=== PATIENT | male | born 1970 | race Caucasian/White ===

== ENCOUNTER 2024-07-24 10:53 | Emergency (ER) | payer OTHER, SELFPAY ==
--- OUTSIDE RECORDS SUMMARY | 2024-07-24 10:56 | XMS_ITS | Clinical Summary ---
Author Organization [facility] Address [address] [place] [address] Care Team Providers Care Workforce Advisor Name Role Phone Alan Abbasi MD Primary Care Provider Allergies No known active allergies Medications MULTIVITAMIN ORAL Take 2 Tablets by mouth once daily. Active docosahexaenoic acid/epa (FISH OIL ORAL) Take 2 Capsules by mouth once daily. Active methylphenidate HCl (Ritalin) 20 mg tabletIndications: Attention deficit hyperactivity disorder (ADHD), combined type Take 1 Tablet (20 mg) by mouth two times daily. 60 Tablet 4 Active CPAPIndications:OS A (obstructive sleep apnea) CPAP (E0601) machine for home use at pressure: 10 , Choice of mask (A7030 or A7034) w/full face cushion (A7031) x1/mo, nasal cushion (A7032) x2/mo, or nasal pillows (A7033) x 2/mo; Length of Need: 99 months; Frequency of use: Daily 1 Each 4 Active methylphenidate HCl (Ritalin) 20 mg tabletIndications: Attention deficit hyperactivity disorder (ADHD), combined type Take 1 Tablet (20 mg) by mouth two times daily. 60 Tablet 4 Active mirtazapine (REMERON) 7.5 mg tabletIndications: Chronic insomnia Take 1 Tablet (7.5 mg) by mouth at bedtime. Take 10 hours before planning on waking up 90 Tablet 1 4 Active metoprolol succinate (TOPROL XL) 50 mg sustained-release tabletIndications: Persistent atrial fibrillation (HC) Take 1 Tablet (50 mg) by mouth two times daily. 180 Tablet 3 Active baclofen 10 mg tabletIndications: Chronic bilateral low back pain without sciatica Take 1 Tablet (10 mg) by mouth 3 times daily if needed (back pain). 15 Tablet 5 Active Active Problems Problem Noted Date Diagnosed Date Carpal tunnel syndrome on right 07/02/2023 Bilateral carpal tunnel syndrome 06/25/2023 Elevated liver enzymes 03/25/2023 Non-traumatic rhabdomyolysis 03/22/2023 Atrial fibrillation 03/22/2023 RAMANDEEP (obstructive sleep apnea) 03/19/2023 Insomnia 07/09/2016 L4-5 neuroforaminal stenosis 02/18/2012 History of spinal fusion, L5-S1, 2002 12/30/2011 Lumbar facet arthropathy 12/30/2011 ADD (attention deficit disorder) Overview (12/20/2013): Neuropsych evaluation Encounters Date Type Department Care Team Description 06/12/2024 7:30 PM CDT Office Visit [facility] [address] [place] [address] Nicole Soto PA Throat Problem (x 4 days) 06/12/2024 Travel 06/01/2024 4:49 PM CDT - 06/01/2024 7:23 PM CDT Emergency [facility] [address] [place] [address] Yamile Dugan PA Chronic bilateral low back pain without sciatica (Primary Dx) Discharge Disposition: Home Self Care 06/01/2024 Travel 05/08/2024 4:30 PM HOSTESS HOST Office Visit [facility] - [address] [place] [phone] Rai Richards MD Follow Up (post hosp F/U. 12/20 echo, 01/17 CT, 01/18 ablation. Pt states feeling fine, no recent or current cardiac symptoms.) 05/08/2024 Travel from Last 3 Months Immunizations Immunization Administration Dates Next Due Influenza, IIV4 11/30/2022,12/07/2016 Influenza, Injectable, Mdck, Quadrivalent, W/preservative 12/16/2020 Influenza,LAIV4 Live Intranasal (Flumist) 2009 Td (Age >=7 Years) 06/21/2003 Tdap 11/30/2022,08/28/2013 Tuberculin (PPD) 11/26/2014,10/31/2014, 5 Zoster (Shingrix-RZV, recombinant) 12/16/2020, Family History Medical History Relation Name Comments No Known Problems Brother Arrhythmia Father pacemaker Cancer Mother Inflammatory bowel disease Mother Heart attack Paternal Grandfather Hypertension Paternal Grandfather Anesthesia Problem No Family History Clotting disorder No Family History Relation Name Status Comments Brother Alive Father Alive Maternal Grandfather Maternal Grandmother Mother Paternal Grandfather Paternal Grandmother Social History Tobacco Use Types Packs/Day Years Used Date Smoking Tobacco: Former Cigarettes Q uit: 03/08/1989 Passive Smoke Exposure: Never Smokeless Tobacco: Former Quit: 07/07/2011 Tobacco Cessation:Counseling Given: Not Answered Alcohol Use Standard Drinks/Week Comments No 0 (1 standard drink = 0.6 oz pur e alcohol) PHQ-2 Answer Date Recorded PHQ-2 TOTAL SCORE 0 03/18/2023 Social Connections Answer Date Recorded Do you often feel lonely or isolated from those around you? 0 03/22/2023 Financial Resource Strain Answer Date R ecorded Difficulty of Paying Living Expenses 3 03/22/2023 Difficulty of Paying Living Expenses Not on file 03/22/2023 Food Insecurity Answer Date Recorded Do you worry your food will run out before you are able to buy more? 1 03/22/2023 Transportation Needs Answer Date Record ed Does lack of transportation keep you from medica l appointments? 1 03/22/2023 Does lack of transportation keep you from work, meetings or getting things that you need? 1 03/22/2023 Housing Stability Answer Date Recorded What is your housing situation today? 1 03/22/2023 Interpersonal Safety Answer Date Record ed Are you being hit, kicked, p ushed or yelled at (see row info)? No 06/01/2024 Interpersonal Safety Abuse 12 - 18 Not on file 06/01/2024 Interpersonal Safety Ambulatory Vulnerability No t on file 06/01/2024 Utilities Answer Date Recorded Do you have trouble paying f or utilities (for example, heat, electricity, water, phone)? 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 Not on file Not on file Not on file Obstetrics History Last Filed Vital Signs Vital Sign Reading Time Taken Comments Blood Pressure 131/81 06/12/2024 7:59 PM CDT Pulse 104 06/12/2024 7:59 PM CDT Temperature 37.4 C (99.4 F) 06/12/2024 7:59 PM CDT Respiratory Rate 18 06/12/2024 7:59 PM CDT Oxygen Saturation 96% 06/12/2024 7:59 PM CDT Inhaled Oxygen Concentration - - Weight 136.5 kg (301 lb) 06/12/2024 7:59 PM CDT Height 185.4 cm (6' 1) 06/01/2024 4:51 PM CDT Body Mass Index 39.71 06/01/2024 4:51 PM CDT Plan of Treatment Health Maintenance Due Date Last Done Comments Depression screening for age 12+ 1981 Pneumococcal series for age 50+ (1 of 2 - PCV) 02/15/1988 COVID-19 vaccine series ( season) 2023 12/05/2022, 09/28/2020, 07/31/2020 Influenza Vaccine (Season Ended) 2024 11/30/2022, 12/16/2020, 12/07/2016, Additional history exists BMI (ht and wt on same day) for age 18+ 05/08/2025 05/08/2024, 11/30/2023, 09/08/2023, Additional history exists Fecal testing sDNA-FIT ([place] guard) for age 45-75 03/30/2026 03/30/2023 Lipids for age 45-75 03/18/2028 03/18/2023, 06/09/2022, 07/21/2021 Tetanus booster 11/30/2032 11/30/2022, 08/07, 06/21/2003 Zoster (shingles) series for age 50+ Completed 12/16/2020, 09/18/2020 HIV for age 15-65 Completed 06/09/2022 Hepatitis C screening for ag e 18-79 Completed 06/09/2022 Tdap Completed 11/30/2022, 08/28/2013 Procedures Procedure Name Priority Date/Time Associated Diagnosis Comments STREP A PCR STAT 06/12/2024 7:55 PM CDT Sore throat THROAT RAPID STREP A WITH REFLEX STAT 06/12/2024 7:55 PM CDT Sore throat EKG 12 LEAD STAT 06/01/2024 5:56 PM CDT URINALYSIS MICROSCOPIC STAT 06/01/2024 5:52 PM CDT UA W/ SEDIMENT EXAM REFLEXED PER CRITERIA STAT 06/01/2024 5:52 PM CDT CBC WITH AUTO DIFFERENTIAL STAT 06/01/2024 5:35 PM CDT FOLIC ACID STAT 06/01/2024 5:35 PM CDT VITAMIN B12 STAT 06/01/2024 5:35 PM CDT T4,FREE STAT 06/01/2024 5:35 PM CDT TSH STAT 06/01/2024 5:35 PM CDT CK TOTAL STAT 06/01/2024 5:35 PM CDT BASIC METABOLIC PANEL STAT 06/01/2024 5:35 PM CDT CBC WITH AUTO DIFFERENTIAL STAT 06/01/2024 5:35 PM CDT EKG 12 LEAD Routine 05/08/2024 4:03 PM HOSTESS HOST Persistent atrial fibrillation (HC) SDNA-FIT EXTERNAL (COLOGUARD) Routine 03/30/2023 11:15 AM HOSTESS HOST Colon cancer screening LIPID PANEL W REFLEX MEASURED LDL Routine 03/18/2023 5:12 PM HOSTESS HOST Routine general medical examination at a health care facility LC HIV-1/O/2, 4TH GENERATION Routine 06/09/2022 8:44 AM CDT Screening for HIV (human immunodeficiency virus) LC HCV ANTIBODY RFX TO QUANT PCR Routine 06/09/2022 8:44 AM CDT Need for hepatitis C screening test from Last 3 Months or Most Recently Relevant to Health Maintenance Results * STREP A PCR (06/12/2024 7:55 PM CDT) GROUP A STREP Negative 06/13/2024 2:39 PM CDT [facility] Throat SPECIMEN FROM THROAT / Unknown Non-Blood / Unknown 06/12/2024 7:55 PM CDT 06/12/2024 8:14 PM CDT us Aden Romanagusto Josue MICROBIOLOGY Final Result Performing Organization Address [facility]/ZIP Co de Phone Number [facility] [address] [place] [address], * THROAT RAPID STREP A WITH REFLEX (06/12/2024 7:55 PM CDT) STREP A ANTIGEN Negative 06/12/2024 8:14 PM CDT [facility] Comment:PCR to follow. Throat SPECIMEN FROM THROAT / Unknown Non-Blood / Unknown 06/12/2024 7:55 PM CDT 06/12/2024 7:59 PM CDT us Aden Roman Maribel ISRAEL MICROBIOLOGY Final Result Performing Organization Address City/[facility]/ZIP Co de Phone Number [facility] [address] [place] [address] * EKG 12 LEAD (06/01/2024 5:56 PM CDT) Only the most recent of2 resultswithin the time period is included. Interpretation Normal sinus rhythm Normal ECG When compared with ECG of 08-May-2024 16:03, No significant change was found BEYOND NOW Ventricular Rate 62 BPM BEYOND NOW Atrial Rate 62 BPM BEYOND NOW P-R Interval 168 ms BEYOND NOW QRS Duration 106 ms BEYOND NOW QT 404 ms BEYOND NOW QTc 410 ms BEYOND NOW P Bovey 34 degrees BEYOND NOW R Bovey 25 degrees BEYOND NOW T Bovey 52 degrees BEYOND NOW 06/01/2024 5:56 PM CDT 06/02/2024 3:32 AM CDT Yamile ISRAEL EKG ORD Final Result Performing Organization Address City/[facility]/ZIP Co de Phone Number BEYOND NOW [place], [place] * URINALYSIS MICROSCOPIC (06/01/2024 5:52 PM CDT) RBC 0-2 0-2, None Seen /HPF 06/01/2024 6:19 PM CDT [facility] WBC 0-2 0-2, 3-5, None Seen /HPF 06/01/2024 6:19 PM CDT [facility] BACTERIA Rare None Seen, Rare, Few Bacteria/H PF 06/01/2024 6:19 PM CDT [facility] EPITHELIAL CELLS Few None Seen, Few Epi/HPF 06/01/2024 6:19 PM CDT [facility] Mucus Present 06/01/2024 6:19 PM CDT [facility] Urine URINE SPECIMEN / Unknown Non-Blood / Unknown 06/01/2024 5:52 PM CDT 06/01/2024 5:55 PM CDT Yamile ISRAEL URINE Final Result [facility] [address] [place] [address] * (ABNORMAL) UA W/ SEDIMENT EXAM REFLEXED PER CRITERIA (06/01/2024 5:52 PM CDT) COLOR Yellow Yellow Color 06/01/2024 5:58 PM CDT [facility] CLARITY Clear Clear Clarity 06/01/2024 5:58 PM CDT [facility] SPECIFIC GRAVITY,URINE 1.025 1.010, 1.015, 1.020, 1.025 06/01/2024 5:58 PM CDT [facility] PH,URINE 6.0 6.0, 7.0, 8.0, 5.5, 6.5, 7.5, 8.5 06/01/2024 5:58 PM CDT [facility] UROBILINOGEN, QUALITATIVE Normal Normal EU/dl 06/01/2024 5:58 PM T [facility] PROTEIN, URINE Trace(A) Negative mg/dL 06/01/2024 5:58 PM CDT [facility] GLUCOSE, URINE Negative Negative mg/dL 06/01/2024 5:58 PM CDT [facility] KETONES,URINE Negative Negative mg/dL 06/01/2024 5:58 PM CDT [facility] BILIRUBIN,URI NE Negative Negative 06/01/2024 5:58 PM T [facility] OCCULT BLOOD,URINE Trace(A) Negative 06/01/2024 5:58 PM T [facility] NITRITE Negative Negative 06/01/2024 5:58 PM CDT [facility] LEUKOCYTE ESTERASE Negative Negative 06/01/2024 5:58 PM T [facility] Urine URINE SPECIMEN / Unknown Non-Blood / Unknown 06/01/2024 5:52 PM CDT 06/01/2024 5:55 PM CDT us Yamile ISRAEL URINE Final Result [facility] [address] [place] [address] * CBC WITH AUTO DIFFERENTIAL (06/01/2024 5:35 PM CDT) WHITE BLOOD COUNT 7.1 4.5 - 11.0 thou/cu mm 06/01/2024 5:44 PM [facility] RED BLOOD COUNT 4.90 4.30 - 5.90 mil/cu mm 06/01/2024 5:44 PM [facility] HEMOGLOBIN 14.4 13.5 - 17.5 g/dL 06/01/2024 5:44 PM [facility] HEMATOCRIT 44.4 37.0 - 53.0 % 06/01/2024 5:44 PM [facility] MCV 91 80 - 100 fL 06/01/2024 5:44 PM [facility] MCH 29.4 26.0 - 34.0 pg 06/01/2024 5:44 PM [facility] MCHC 32.4 32.0 - 36.0 g/dL 06/01/2024 5:44 PM [facility] RDW 12.9 11.5 - 15.5 % 06/01/2024 5:44 PM [facility] PLATELET COUNT 230 140 - 440 thou/cu mm 06/01/2024 5:44 PM [facility] MPV 9.2 6.5 - 11.0 fL 06/01/2024 5:44 PM [facility] % NEUT 57.6 % 06/01/2024 5:44 PM [facility] % LYMPH 29.7 % 06/01/2024 5:44 PM [facility] % MONO 10.4 % 06/01/2024 5:44 PM [facility] % EOS 1.7 % 06/01/2024 5:44 PM [facility] % BASO 0.6 % 06/01/2024 5:44 PM [facility] ABSOLUTE NEUTROPHILS 4.1 1.7 - 7.0 thou/cu mm 06/01/2024 5:44 PM [facility] ABSOLUTE LYMPHOCYTES 2.1 0.9 - 2.9 thou/cu mm 06/01/2024 5:44 PM [facility] ABSOLUTE MONOCYTES 0.7 <0.9 thou/cu mm 06/01/2024 5:44 PM CDT [facility] ABSOLUTE EOSINOPHILS 0.1 <0.5 thou/cu mm 06/01/2024 5:44 PM CDT [facility] ABSOLUTE BASOPHILS 0.0 <0.3 thou/cu mm 06/01/2024 5:44 PM CDT [facility] Blood BLOOD SPECIMEN / Unknown Venipuncture / Unknown 06/01/2024 5:35 PM CDT 06/01/2024 5:38 PM CDT Yamile ISRAEL HEMATOLOGY Final Result Performing Organization Address [facility] Co de Phone Number [facility] [address] [place] [address] * TSH (06/01/2024 5:35 PM CDT) TSH 1.56 0.27 - 4.20 uIU/mL 06/01/2024 6:07 PM CDT [facility] Blood BLOOD SPECIMEN / Unknown Venipuncture / Unknown 06/01/2024 5:35 PM CDT 06/01/2024 5:38 PM CDT Narrative [facility] - 06/01/2024 6:07 PM CDT In Adults, TSH values between 5.00 and 10.00 uIU/ml do not necessarily indicate the presence of Hypothyroidism. Correlation with clinical findings such as presence of goiter and/or Thyroperoxidase (TPO) Antibody may be helpful. For more information please refer to NOEL 2004; 291: 228-238. Yamile ISRAEL CHEMISTRY Final Result Performing Organization Address [facility] Co de Phone Number [facility] [address] [place] [address] * T4,FREE (06/01/2024 5:35 PM CDT) T4,FREE 1.05 0.93 - 1.70 ng/dL 06/02/2024 1:02 PM CDT [facility] Blood BLOOD SPECIMEN / Unknown Venipuncture / Unknown 06/01/2024 5:35 PM CDT 06/01/2024 5:38 PM CDT [facility] Final Result Performing Organization Address City/[facility]/ZIP Co de Phone Number [facility] [address] [place] [address], [place] * FOLIC ACID (06/01/2024 5:35 PM CDT) FOLIC ACID 6.2 4.6 - 34.8 ng/mL 06/02/2024 1:02 PM CDT [facility] Blood BLOOD SPECIMEN / Unknown Venipuncture / Unknown 06/01/2024 5:35 PM CDT 06/01/2024 5:38 PM CDT Narrative [facility] - 06/02/2024 1:02 PM CDT Biotin supplements may cause clinically significant interference for this test assay. If interference is suspected, it is strongly recommended that biotin is discontinued for at least one week prior to retesting. Yamile Mehdi ISRAEL CHEMISTRY Final Result Performing Organization Address City/[facility] Co de Phone Number [facility] [address] [place] [address], [place] * VITAMIN B12 (06/01/2024 5:35 PM CDT) VITAMIN B12 549 232 - 1,245 pg/mL 06/02/2024 1:02 PM CDT [facility] Blood BLOOD SPECIMEN / Unknown Venipuncture / Unknown 06/01/2024 5:35 PM CDT 06/01/2024 5:38 PM CDT Narrative [facility] - 06/02/2024 1:02 PM CDT Biotin supplements may cause clinically significant interference for this test assay. If interference is suspected, it is strongly recommended that biotin is discontinued for at least one week prior to retesting. Yamile ISRAEL CHEMISTRY Final Result [facility] [address] [place] [address], * CK TOTAL (06/01/2024 5:35 PM CDT) CK,TOTAL 126 39 - 308 IU/L 06/01/2024 6:07 PM T [facility] Blood BLOOD SPECIMEN / Unknown Venipuncture / Unknown 06/01/2024 5:35 PM CDT 06/01/2024 5:38 PM CDT Yamile ISRAEL CHEMISTRY Final Result Performing Organization Address City/[facility]/ZIP Co de Phone Number [facility] [address] [place] [address] * (ABNORMAL) BASIC METABOLIC PANEL (06/01/2024 5:35 PM CDT) SODIUM 137 136 - 145 mmol/L 06/01/2024 6:07 PM [facility] POTASSIUM 4.1 3.5 - 5.1 mmol/L 06/01/2024 6:07 PM [facility] CHLORIDE 102 98 - 107 mmol/L 06/01/2024 6:07 PM [facility] CO2,TOTAL 25 22 - 29 mmol/L 06/01/2024 6:07 PM [facility] ANION GAP 10 5 - 18 06/01/2024 6:07 PM [facility] GLUCOSE 114(H) 70 - 99 mg/dL 06/01/2024 6:07 PM [facility] CALCIUM 9.5 8.8 - 10.4 mg/dL 06/01/2024 6:07 PM [facility] Comment: Reference ranges for this test were updated on 01/11/2024 to reflect our healthy population more accurately. Reference range changes are not retroactively applied to results, but previous results using the same methodology can be interpreted in the context of the new reference range. BUN 21(H) 6 - 20 mg/dL 06/01/2024 6:07 PM T [facility] CREATININE 0.69(L) 0.70 - 1.20 mg/dL 06/01/2024 6:07 PM T [facility] BUN/CREAT RATIO 30(H) 10 - 20 6:07 PM T [facility] eGFR >90 >90 mL/min/1. 73m2 06/01/2024 6:07 PM [facility] Comment:As of 2021, eG FR is calculated by the CKD-EPI creatinine equation without race adjustment. eGFR can be influenced by muscle mass, exercise, and diet. The reported eGFR is an estimation only and is only applicable if the renal function is stable. Blood BLOOD SPECIMEN / Unknown Venipuncture / Unknown 06/01/2024 5:35 PM CDT 06/01/2024 5:38 PM CDT Yamile ISRAEL CHEMISTRY Final Result [facility] [address] [place], [place] [id number] * SDNA-FIT EXTERNAL (COLOGUARD) (03/30/2023 11:15 AM HOSTESS HOST) NONINV COLON CA DNA+OCC BLD SCRN STL-IMP Negative Negative 04/11/2023 10:12 AM HOSTESS HOST [employer] [facility] [facility] (CLIA #:[id number]) Comment: NEGATIVE TEST RESULT. A negative Cologuard result indicates a low likelihood that a colorectal cancer (CRC) or advanced adenoma (adenomatous polyps with more advanced pre-malignant features) is present. The chance that a person with a negative Cologuard test has a colorectal cancer is less than 1 in 1500 (negative predictive value >99.9%) or has an advanced adenoma is less than 5.3% (negative predictive value 94.7%). These data are based on a prospective cross-sectional study of 10,000 individuals at average risk for colorectal cancer who were screened with both Cologuard and colonoscopy. (Jazmine Montelongo, N Engl J Med 2014;370(14):2733-4033) The normal value (reference range) for this assay is negative. COLOGUARD RE-SCREENING RECOMMENDATION: Periodic colorectal cancer screening is an important part of preventive healthcare for asymptomatic individuals at average risk for colorectal cancer. Following a negative Cologuard result, the [place] [employer] Society and U.S. Multi-Society Task Force screening guidelines recommend a Cologuard re-screening interval of 3 years. References: [place] [employer] Guideline for Colorectal Cancer Screening: https://www.cancer.org/cancer/lbwtj-eiopgx-exfosy/yqcxewjad-mkutbfnrs-kwcqsvc/ac s-rec ommendations.html.; Will DK, Sravani CLIFTON, Lupis NoK, Colorectal Cancer Screening: Recommendations for Physicians and Patients from the U.S. Multi-Society Task Force on Colorectal Cancer Screening , Am J Gastroenterology 2017; 112:9354-9133. TEST DESCRIPTION: Composite algorithmic analysis of stool DNA-biomarkers with hemoglobin immunoassay. Quantitative values of individual biomarkers are not reportable and are not associated with individual biomarker result reference ranges. Cologuard is intended for colorectal cancer screening of adults of either sex, 45 years or older, who are at average-risk for colorectal cancer (CRC). Cologuard has been approved for use by the U.S. FDA. The performance of Cologuard was established in a cross sectional study of average-risk adults aged 50-84. Cologuard performance in patients ages 45 to 49 years was estimated by sub-group analysis of near-age groups. Colonoscopies performed for a positive result may find as the most clinically significant lesion: colorectal cancer [4.0%], advanced adenoma (including sessile serrated polyps greater than or equal to 1cm diameter) [20%] or non- advanced adenoma [31%]; or no colorectal neoplasia [45%]. These estimates are derived from a prospective cross-sectional screening study of 10,000 individuals at average risk for colorectal cancer who were screened with both Cologuard and colonoscopy. (Jazmine Montelongo, N Engl J Med 2014;370(14):5592-0982.) Cologuard may produce a false negative or false positive result (no colorectal cancer or precancerous polyp present at colonoscopy follow up). A negative Cologuard test result does not guarantee the absence of CRC or advanced adenoma (pre-cancer). The current Cologuard screening interval is every 3 years. ([place] [employer] and U.S. Multi-Society Task Force). Cologuard performance data in a 10,000 patient pivotal study using colonoscopy as the reference method can be accessed at the following location: www.[employer].Clearbon/results. Additional description of the Cologuard test process, warnings and precautions can be found at www.[facility].com. Stool specimen (specimen) (Rectum) 03/30/2023 11:15 AM HOSTESS HOST 03/31/2023 1:26 PM HOSTESS HOST Danii Gomez DO URINE Final Result [employer] [facility] (CLIA #:[id number]) [place] [address], * (ABNORMAL) LIPID PANEL W REFLEX MEASURED LDL (03/18/2023 5:12 PM HOSTESS HOST) CHOLESTEROL,TOTAL 162 100 - 199 mg/dL 03/18/2023 5:[address] [facility] Comment: Cholesterol, Total Reference Ranges Desirable <200 mg/dL Borderline 200-239 mg/dL High >=240 mg/dL TRIGLYCERIDES 128 <150 mg/dL 03/18/2023 5:[address] [facility] HDL CHOLESTEROL 39(L) >40 mg/dL 5:[address] [facility] NON-HDL CHOLESTEROL 123 <145 mg/dl 03/18/2023 5:[address] [facility] CHOL/HDL RATIO 4.15 <4.50 03/18/2023 5:[address] [facility] LDL CHOLESTEROL 97 <=130 mg/dL 03/18/2023 5:[address] [facility] VLDL CHOLESTEROL 26 <=30 mg/dL 03/18/2023 5:[address] [facility] PROVIDER ORDERED STATUS RANDOM 03/18/2023 5:[address] [facility] Blood BLOOD SPECIMEN / Unknown Venipuncture / Unknown 03/18/2023 5:12 PM HOSTESS HOST 03/18/2023 5:13 PM HOSTESS HOST Danii Gomez DO CHEMISTRY Final Result [facility] [address] [place] [address] * LC HCV ANTIBODY RFX TO QUANT PCR (06/09/2022 8:44 AM CDT) Pathologist [facility] HCV Ab Non Reactive Non Reactive 06/11/2022 10:06 PM CDT [facility] [facility] Blood BLOOD SPECIMEN / Unknown Venipuncture / Unknown 06/09/2022 8:44 AM CDT 06/09/2022 8:48 AM CDT Narrative [facility]) - 06/11/2022 10:06 PM CDT Performed at: [address] [place] [id number] Manager Career: Jamey Hernandez MD, Phone: [phone] [facility] Fin al Result [facility]) [facility] [place] [address], * LC HIV-1/O/2, 4TH GENERATION (06/09/2022 8:44 AM CDT) Pathologist [facility] HIV Scr 4th Gen Non Reactive Non Reactive 06/12/2022 3:07 AM CDT [facility] Comment: HIV Negative HIV-1/HIV-2 antibodies and HIV-1 p24 antigen were NOT detected. There is no laboratory evidence of HIV infection. Blood BLOOD SPECIMEN / Unknown Venipuncture / Unknown 06/09/2022 8:44 AM CDT 06/09/2022 8:48 AM CDT [facility]ative [facility] - 06/12/2022 3:07 AM CDT Performed at: 01 - [facility] [address] [place], [place] [id number] Manager Career: Jamey Hernandez MD, Phone: [phone] us [facility] Fin al Result [facility]) [facility] [place] [address], from Last 3 Months or Most Recently Relevant to Health Maintenance Insurance [facility] [employer] Advance Directives * Full Code (Latest Code Status on File) Date Activated Date Inactivated Comments 01/19/2024 11:20 AM 01/19/2024 7:09 PM Question Answer Comments Code Status Discussion: Other * Full Code Date Activated Date Inactivated Comments 12/21/2023 11:45 AM 12/21/2023 2:50 PM Question Answer Comments Code Status Discussion: Other * Full Code Date Activated Date Inactivated Comments 09/16/2023 7:33 AM 09/16/2023 1:41 PM Question Answer Comments Code Status Discussion: Unable to Assess Preferences, Provider to review later * Full Code Date Activated Date Inactivated Comments 08/12/2023 6:30 AM 08/12/2023 11:45 AM Question Answer Comments Code Status Discussion: Unable to Assess Preferences, Provider to review later * Full Code Date Activated Date Inactivated Comments 04/16/2023 10:26 AM 04/16/2023 6:34 PM Question Answer Comments Code Status Discussion: Other Care Teams Workforce Advisor Relationship Specialty Start Date End Date Ayleen, Alan William, MD [address] [place] [address] PCP - General Family Practice 09/13/23
[2024-07-24 11:03] VITALS: BP 157/88; PULSE 83; RESP 16; TEMP 36.7; O2SAT 98; BMI 39.1
--- NOTE | 2024-07-24 11:22 | ED.GENADULT ---
HPI - General Adult General Time Seen by Provider: 11:23 Date Seen: 07/24/24 Chief complaint: Unspecified Complaint, Adult Stated complaint: whole body pain Time Seen by Provider: 07/24/24 11:05 Source: patient, RN notes reviewed and old records reviewed Mode of arrival: ambulatory Limitations: no limitations History of Present Illness HPI narrative: This 54-year-old male is accompanied by his with pain, concern of rhabdomyolysis. He has a history of nontraumatic rhabdomyolysis. About 2 years ago he was doing some wall pushups and the next day he had such severe pain in his arms he could not move. He denies any use of lipid agents/statins. He was hospitalized at [place] [address]. He notes he lifted some firewood into his truck over the weekend but was nothing exertional. He has long-term history of back issues with a spinal fusion L5-S1 in 2001. He notes his back was feeling a bit achy last night, took baclofen and then took mirtazapine to sleep. He was able to sleep but when he awoke at 7:00 a.m. this morning his back was in excruciating pain, could barely move. His notes it takes him about a 1/2 hour to get moving in the morning but this morning was out of the ordinary. She tried just massaging his back in he was screaming in pain. He denies any bowel or bladder dysfunction, pain is not going down into the legs at all. He did do a steam treatment to his back. He was having difficulty even just walking to the car due to pain in the back. Is on both sides in the low back. Again, pain is not going down the legs. He also notes that he is having generalized aches basically everywhere. He notes that his surgical scars from his prior carpal tunnel surgery on both hands are achy and sore. He denies any fevers or chills. His notes that baseline he is cold. Current medications from [facility] where he goes to his primary care are baclofen, Ritalin, Cozaar, betamethasone 0.05% for psoriasis, Wellbutrin. He takes Ritalin 20 mg b.i.d. as well as Concerta 54 mg daily for ADHD. He is on the Wellbutrin for anxiety and ADHD. The Cozaar as for hypertension. He had normal basic metabolic panel on March 27th, normal CBC, normal vitamin B12, normal CK at 126 and normal TSH at 1.56 with a normal free T4 at 1.05. He has no associated sore throat, nasal congestion, respiratory symptoms, cardiovascular symptoms. He had nausea with severe pain this morning but baseline no nausea vomiting diarrhea. No rash, no specific joint pain. His daughter was recently home and she was recovering from some cold symptoms. Related Data Home Medications ?Medication ?Instructions ?Recorded ?Confirmed methylphenidate HCl 20 mg tablet 20 mg PO BID 07/24/24 07/24/24 metoprolol succinate 50 mg 50 mg PO BID 07/24/24 07/24/24 tablet,extended release 24 hr mirtazapine 7.5 mg tablet 7.5 mg PO QPM 07/24/24 07/24/24 Previous Rx's ?Medication ?Instructions ?Recorded cyclobenzaprine 10 mg tablet 10 mg PO TID PRN muscle spasm #30 07/24/24 tabs gabapentin 100 mg capsule 100 mg PO TID PRN #15 caps 07/24/24 Allergies Allergy/AdvReac Type Severity Reaction Status Date / Time No Known Drug Allergies Allergy Verified 07/24/24 11:02 Review of Systems Status of ROS: Reports: 6 or more systems reviewed and unremarkable except as noted in History and below [facility] Medical History (Updated 07/24/24 @ 13:29 by Shannen Rehman MD) Hypertension ?I10 - Essential (primary) hypertension (ICD-10) Obstructive sleep apnea ?G47.33 - Obstructive sleep apnea (adult) (pediatric) (ICD-10) ADD (attention deficit disorder) ?F98.8 - Other specified behavioral and emotional disorders with onset usually occurring in childhood and adolescence (ICD-10) Social History Smoking Status: Never smoker How often do you have a drink containing alcohol: never AUDIT-C Alcohol total score: 0 Non-prescribed substance use: denies use Exam Const: Vital Signs, click to edit/add: Vital Signs - 24 hr 07/24/24 11:03 07/24/24 11:50 Temperature 98.1 F Pulse Rate [Pulse Oximeter] 83 Respiratory Rate 16 Blood Pressure [Ri ght Upper Arm] 157/88 H Pulse Oximetry 98 98 This 54-year-old male is alert, interactive, no apparent distress but lying on his left side. Sclera clear, face atraumatic, able speak in complete sentences. Neck is thick and lying on his side. Lungs are clear, good air entry, no wheeze or crackles. CV regular rate and rhythm, no murmur, normal S1-S2, no S3-S4. He has well-healed scar over his central lumbar area no midline tenderness over his back, no significant paraspinous tenderness on gentle manipulation palpation of his back. Skin visualized without any rash. Abdomen obese but soft, nontender. He has no lower extremity edema. Note no joint swelling over joints of lower extremities or arms. Neurovascular is grossly intact. Did not ask him to get up and ambulate at this point. Documenting provider has reviewed patient's vital signs: yes Course Course ED Course: Patient is requesting pain management, will give him 4 mg IV morphine, have him monitored on pulse oximetry. Will do full complement of labs including total CK. Will also look at triple viral swab. Did discuss that sometimes at onset of illness patients can experience myalgias. Inflammatory arthropathy is possible. He does have psoriasis. Will get basic inflammatory markers. Guide therapy accordingly. Do not feel he needs any imaging at this time but will consider pending his ED course and laboratory evaluation. Reevaluation(s) Time of Reevaluation #1: 13:18 Reevaluation #1: Did visualize the patient ambulating back to his room from the bathroom, was moving freely albeit slowly. He was able to get to and from the bathroom independently. Have reviewed with him that his laboratory evaluation is not showing any concerning changes. There are no recent liver functions to compare to but presumably with his body habitus that this is fatty liver. His electrolytes, C-reactive protein, CBC are all normal. Reviewed negative triple viral swab. His sed rate is pending but will contact him with that result if significantly elevated. Have discussed my concern for potential psoriatic arthritis given underlying psoriasis. He has had some recent problems with foot pain in tendinitis. Did discuss that he could review this with his primary care provider and get referred to archeology faculty member if ongoing concerns. It is something that I think needs to be considered if he has ongoing issues. Certainly if his sed rate is elevated, would think that this could be a possible etiology. He only has about maybe 1 baclofen left, refill offered but he is wondering about Flexeril. He feels Flexeril actually works better. I certainly can give him a prescription for this. Reviewed that I do not feel narcotics are indicated in would have concern about prescribing them for acute on chronic issue without any fracture or acute traumatic change. Discussed gabapentin, he has taken this and does note it makes him tired. Will send him with a short course of gabapentin which he does agree to. Vital Signs Vital signs: Initial Vital Signs Temperature 98.1 F 07/24/24 11:03 Temperature Source Temporal Artery Scan 07/24/24 11:03 Pulse Rate 83 07/24/24 11:03 Respiratory Rate 16 07/24/24 11:03 Blood Pressure 157/88 H 07/24/24 11:03 Blood Pressure Mean 111 H 07/24/24 11:03 Pulse Oximetry 98 07/24/24 11:03 Vital Signs Temperature 98.1 F 07/24/24 11:03 Pulse Rate 83 07/24/24 11:03 Respiratory Rate 16 07/24/24 11:03 Blood Pressure 157/88 H 07/24/24 11:03 Pulse Oximetry 98 07/24/24 11:03 Temperature 98.1 F 07/24/24 11:03 Pulse Rate 83 07/24/24 11:03 Respiratory Rate 16 07/24/24 11:03 Blood Pressure 157/88 H 07/24/24 11:03 Pulse Oximetry 98 07/24/24 11:50 Medications Administered Medications: Generic Name Dose Route Start Last Admin Trade Name Freq PRN Reason Stop Dose Admin Sodium Chloride 1,000 mls @ 500 mls/hr 07/24/24 11:33 07/24/24 11:55 0.9 % Sodium Chloride 1000 Ml IV 07/24/24 13:32 500 mls/hr .Q2H JESSICA Administration Discontinued Medications Generic Name Dose Route Start Last Admin Trade Name Freq PRN Reason Stop Dose Admin Morphine Sulfate 4 mg 07/24/24 11:31 07/24/24 11:55 Morphine 4 Mg/Ml Inj IVP 07/24/24 11:32 4 mg ONCE ONE Administration Medical Decision Making Lab Data Lab results reviewed: Yes I reviewed the patient's lab results Labs: Lab Results 07/24/24 07/24/24 Range/Units 11:50 11:55 WBC 7.76 (4.50-11.00) K/uL RBC 4.69 (4.30-5.90) m/uL Hgb 14.1 (13.5-17.5) gm/dL Hct 42.6 (37.0-53.0) % MCV 91 (80-100) fL MCH 30 (26-34) pg MCHC 33 (32-36) gm/dL RDW Coeff of Nathaniel 12.7 (11.5-15.5) % Plt Count 241 (140-440) K/uL Neut % (Auto) 66.4 (42.0-72.0) % Lymph % (Auto) 22.7 (20-44) % [place] % (Auto) 8.9 (0.0-11.0) % Eos % (Auto) 1.4 (0.0-7.0) % Baso % (Auto) 0.5 (0.0-3.0) % Neut # (Auto) 5.15 (1.7-7.0) K/uL Lymph # (Auto) 1.76 (0.90-2.90) K/uL [place] # (Auto) 0.70 (0.00-0.90) K/UL Eos # (Auto) 0.11 (0.00-0.50) K/uL Baso # (Auto) 0.04 (0.00-0.30) K/uL Abs Immat Gran (auto) 0.01 (0.00-0.30) K/uL Imm/Tot Granulo (auto) 0.1 % Sodium 140 (135-149) mmol/L Potassium 4.1 (3.6-5.1) mmol/L Chloride 102 (96-114) mmol/L Carbon Dioxide 31 (20-32) mmol/L Anion Gap 7 (7-15) mEq/L BUN 21 (7-30) mg/dL Creatinine 0.8 (0.5-1.5) mg/dL Estimated Creat Clear 117.91 Estimated GFR 105 ml/min Glucose 154 H (60-115) mg/dL Lactate 2.0 H (0.5-1.9) mmol/L Calcium 9.5 (8.4-10.6) mg/dL Magnesium 2.2 (1.5-2.6) mg/dL Total Bilirubin 0.6 (0.1-1.5) mg/dL AST 64 H (12-35) U/L ALT 85 H (4-50) U/L Alkaline Phosphatase 81 (40-150) U/L Total Creatine Kinase 85 (54-186) U/L C-Reactive Protein 0.8 (0.5-1.0) mg/dL Total Protein 7.7 (6.0-8.3) g/dL Albumin 4.4 (3.3-5.0) g/dL SARS-CoV-2 (PCR) Negative SARS-CoV-2 (Negative) Influenza Type A (PCR) Negative PCR FLU A (Negative) Influenza Type B (PCR) Negative PCR FLU B (Negative) RSV (PCR) Negative PCR RSV (Negative) Discharge Plan Discharge Clinical Impression: Low back pain Qualifiers: Chronicity: chronic Back pain laterality: bilateral Sciatica presence: without sciatica Qualified Code(s): M54.50 - Low back pain, unspecified Patient Disposition: Home, Self-Care Condition: Stable Instructions: Acute Low Back Pain (ED) Additional Instructions: Can use the Flexeril which is a muscle relaxant. Have written for some gabapentin to try for more acute severe pain. As you stated it makes you sedated or tired, would not recommend driving or operating machinery on this. Need to follow up in clinic with your primary care provider within the next week if ongoing symptoms. Consideration for psoriatic arthritis may need to be entertained, possible rheumatology referral if felt applicable with your primary care provider. Your sed rate is still pending, if this is elevated, would recommend further evaluation and potential rheumatology evaluation. Can use Tylenol and ibuprofen with the other medicines for pain management, follow bottle directions for dosing. Activity Level: Activity as Tolerated Prescriptions: New cyclobenzaprine 10 mg tablet 10 mg PO TID PRN (Reason: muscle spasm) Qty: 30 0RF gabapentin 100 mg capsule 100 mg PO TID PRNQty: 15 0RF No Action methylphenidate HCl 20 mg tablet 20 mg PO BID mirtazapine 7.5 mg tablet 7.5 mg PO QPM metoprolol succinate 50 mg tablet extended release 24 hr 50 mg PO BID Follow Up/Referrals: Provider,Not a Local [Primary Care Provider] - Stand Alone Forms: [facility] Info Instructions
--- OUTSIDE RECORDS SUMMARY | 2024-07-24 11:48 | XMS_ITS | Clinical Summary ---
Author Organization [facility] Address [address] [place] [id number] Care Team Providers Care Router Operator Pin Name Role Phone Alan Abbasi MD Primary [...] Description 06/12/2024 7:30 PM CDT Office Visit [facility] [address] [place] [address] Nicole Soto PA Throat Problem (x 4 days) 06/12/2024 Travel 06/01/2024 4:49 PM CDT - 06/01/2024 7:23 PM CDT Emergency [facility] [address] [place] [address] Yamile Dugan PA Chronic bilateral low back pain without sciatica (Primary Dx) Discharge Disposition: Home Self Care 06/01/2024 Travel 05/08/2024 4:30 PM ATTRACTION WORKER Office Visit [facility] - [address] [place] [phone] Rai Richards MD Follow Up (post hosp [...] on file Legal Sex Male 6:04 AM ATTRACTION WORKER Gender Identity Not on file Sexual Orientation Not on file 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 Not on file Not on file Not [...] 09/08/2023, Additional history exists Fecal testing sDNA-FIT ([place] guard) for age 45-75 03/30/2026 03/30/2023 Lipids [...] EKG 12 LEAD Routine 05/08/2024 4:03 PM ATTRACTION WORKER Persistent atrial fibrillation (HC) SDNA-FIT EXTERNAL (COLOGUARD) Routine 03/30/2023 11:15 AM ATTRACTION WORKER Colon cancer screening LIPID PANEL W REFLEX MEASURED LDL Routine 03/18/2023 5:12 PM ATTRACTION WORKER Routine general medical examination at a health [...] A STREP Negative 06/13/2024 2:39 PM CDT [facility] Throat SPECIMEN FROM THROAT / Unknown Non-Blood / Unknown 06/12/2024 7:55 PM CDT 06/12/2024 8:14 PM CDT us Aden Romanagusto Josue MICROBIOLOGY Final Result Performing Organization Address [facility]/ZIP Co de Phone Number [facility] [address] [place] [address], * THROAT RAPID STREP A WITH REFLEX (06/12/2024 7:55 PM CDT) STREP A ANTIGEN Negative 06/12/2024 8:14 PM CDT [facility] Comment:PCR to follow. Throat SPECIMEN FROM THROAT / Unknown Non-Blood / Unknown 06/12/2024 7:55 PM CDT 06/12/2024 7:59 PM CDT us Aden Roman Maribel ISRAEL MICROBIOLOGY Final Result Performing Organization Address City/[facility]/ZIP Co de Phone Number [facility] [address] [place] [address] * EKG 12 LEAD (06/01/2024 5:56 [...] NOW QTc 410 ms BEYOND NOW P Rosanky 34 degrees BEYOND NOW R Rosanky 25 degrees BEYOND NOW T Rosanky 52 degrees BEYOND NOW 06/01/2024 5:56 PM CDT 06/02/2024 3:32 AM CDT Yamile ISRAEL EKG ORD Final Result Performing Organization Address City/[facility]/ZIP Co de Phone Number BEYOND NOW [place], [place] * URINALYSIS MICROSCOPIC (06/01/2024 5:52 PM CDT) RBC 0-2 0-2, None Seen /HPF 06/01/2024 6:19 PM CDT [facility] WBC 0-2 0-2, 3-5, None Seen /HPF 06/01/2024 6:19 PM CDT [facility] BACTERIA Rare None Seen, Rare, Few Bacteria/H PF 06/01/2024 6:19 PM CDT [facility] EPITHELIAL CELLS Few None Seen, Few Epi/HPF 06/01/2024 6:19 PM CDT [facility] Mucus Present 06/01/2024 6:19 PM CDT [facility] Urine URINE SPECIMEN / Unknown Non-Blood / Unknown 06/01/2024 5:52 PM CDT 06/01/2024 5:55 PM CDT Yamile ISRAEL URINE Final Result [facility] [address] [place] [address] * (ABNORMAL) UA W/ SEDIMENT EXAM REFLEXED PER CRITERIA (06/01/2024 5:52 PM CDT) COLOR Yellow Yellow Color 06/01/2024 5:58 PM CDT [facility] CLARITY Clear Clear Clarity 06/01/2024 5:58 PM CDT [facility] SPECIFIC GRAVITY,URINE 1.025 1.010, 1.015, 1.020, 1.025 06/01/2024 5:58 PM CDT [facility] PH,URINE 6.0 6.0, 7.0, 8.0, 5.5, 6.5, 7.5, 8.5 06/01/2024 5:58 PM CDT [facility] UROBILINOGEN, QUALITATIVE Normal Normal EU/dl 06/01/2024 5:58 PM T [facility] PROTEIN, URINE Trace(A) Negative mg/dL 06/01/2024 5:58 PM CDT [facility] GLUCOSE, URINE Negative Negative mg/dL 06/01/2024 5:58 PM CDT [facility] KETONES,URINE Negative Negative mg/dL 06/01/2024 5:58 PM CDT [facility] BILIRUBIN,URI NE Negative Negative 06/01/2024 5:58 PM T [facility] OCCULT BLOOD,URINE Trace(A) Negative 06/01/2024 5:58 PM T [facility] NITRITE Negative Negative 06/01/2024 5:58 PM CDT [facility] LEUKOCYTE ESTERASE Negative Negative 06/01/2024 5:58 PM T [facility] Urine URINE SPECIMEN / Unknown Non-Blood / Unknown 06/01/2024 5:52 PM CDT 06/01/2024 5:55 PM CDT us Yamile ISRAEL URINE Final Result [facility] [address] [place] [address] * CBC WITH AUTO DIFFERENTIAL (06/01/2024 5:35 PM CDT) WHITE BLOOD COUNT 7.1 4.5 - 11.0 thou/cu mm 06/01/2024 5:44 PM [facility] RED BLOOD COUNT 4.90 4.30 - 5.90 mil/cu mm 06/01/2024 5:44 PM [facility] HEMOGLOBIN 14.4 13.5 - 17.5 g/dL 06/01/2024 5:44 PM [facility] HEMATOCRIT 44.4 37.0 - 53.0 % 06/01/2024 5:44 PM [facility] MCV 91 80 - 100 fL 06/01/2024 5:44 PM [facility] MCH 29.4 26.0 - 34.0 pg 06/01/2024 5:44 PM [facility] MCHC 32.4 32.0 - 36.0 g/dL 06/01/2024 5:44 PM [facility] RDW 12.9 11.5 - 15.5 % 06/01/2024 5:44 PM [facility] PLATELET COUNT 230 140 - 440 thou/cu mm 06/01/2024 5:44 PM [facility] MPV 9.2 6.5 - 11.0 fL 06/01/2024 5:44 PM [facility] % NEUT 57.6 % 06/01/2024 5:44 PM [facility] % LYMPH 29.7 % 06/01/2024 5:44 PM [facility] % MONO 10.4 % 06/01/2024 5:44 PM [facility] % EOS 1.7 % 06/01/2024 5:44 PM [facility] % BASO 0.6 % 06/01/2024 5:44 PM [facility] ABSOLUTE NEUTROPHILS 4.1 1.7 - 7.0 thou/cu mm 06/01/2024 5:44 PM [facility] ABSOLUTE LYMPHOCYTES 2.1 0.9 - 2.9 thou/cu mm 06/01/2024 5:44 PM [facility] ABSOLUTE MONOCYTES 0.7 <0.9 thou/cu mm 06/01/2024 5:44 PM CDT [facility] ABSOLUTE EOSINOPHILS 0.1 <0.5 thou/cu mm 06/01/2024 5:44 PM CDT [facility] ABSOLUTE BASOPHILS 0.0 <0.3 thou/cu mm 06/01/2024 5:44 PM CDT [facility] Blood BLOOD SPECIMEN / Unknown Venipuncture / Unknown 06/01/2024 5:35 PM CDT 06/01/2024 5:38 PM CDT Yamile ISRAEL HEMATOLOGY Final Result Performing Organization Address [facility]/[place] Co de Phone Number [facility] [address] [place] [address] * TSH (06/01/2024 5:35 PM CDT) TSH 1.56 0.27 - 4.20 uIU/mL 06/01/2024 6:07 PM CDT [facility] Blood BLOOD SPECIMEN / Unknown Venipuncture / Unknown 06/01/2024 5:35 PM CDT 06/01/2024 5:38 PM CDT Narrative [facility] - 06/01/2024 6:07 PM CDT In Adults, TSH values between 5.00 and 10.00 uIU/ml do not necessarily indicate the presence of Hypothyroidism. Correlation with clinical findings such as presence of goiter and/or Thyroperoxidase (TPO) Antibody may be helpful. For more information please refer to NOEL 2004; 291: 228-238. Yamile ISRAEL CHEMISTRY Final Result Performing Organization Address [facility]/[place] Co de Phone Number [facility] [address] [place] [address] * T4,FREE (06/01/2024 5:35 PM CDT) T4,FREE 1.05 0.93 - 1.70 ng/dL 06/02/2024 1:02 PM CDT [facility] Blood BLOOD SPECIMEN / Unknown Venipuncture / Unknown 06/01/2024 5:35 PM CDT 06/01/2024 5:38 PM CDT [facility] Final Result Performing Organization Address City/[facility]/ZIP Co de Phone Number [facility] [address] [place] [address], [place] * FOLIC ACID (06/01/2024 5:35 PM CDT) FOLIC ACID 6.2 4.6 - 34.8 ng/mL 06/02/2024 1:02 PM CDT [facility] Blood BLOOD SPECIMEN / Unknown Venipuncture / Unknown 06/01/2024 5:35 PM CDT 06/01/2024 5:38 PM CDT Narrative [facility] - 06/02/2024 1:02 PM CDT Biotin supplements may cause clinically significant interference for this test assay. If interference is suspected, it is strongly recommended that biotin is discontinued for at least one week prior to retesting. Yamile Mehdi ISRAEL CHEMISTRY Final Result Performing Organization Address City/[facility]/[place] Co de Phone Number [facility] [address] [place] [address], [place] * VITAMIN B12 (06/01/2024 5:35 PM CDT) VITAMIN B12 549 232 - 1,245 pg/mL 06/02/2024 1:02 PM CDT [facility] Blood BLOOD SPECIMEN / Unknown Venipuncture / Unknown 06/01/2024 5:35 PM CDT 06/01/2024 5:38 PM CDT Narrative [facility] - 06/02/2024 1:02 PM CDT Biotin supplements may cause clinically significant interference for this test assay. If interference is suspected, it is strongly recommended that biotin is discontinued for at least one week prior to retesting. Yaimle ISRAEL CHEMISTRY Final Result [facility] [address] [place] [address], * CK TOTAL (06/01/2024 5:35 PM CDT) CK,TOTAL 126 39 - 308 IU/L 06/01/2024 6:07 PM T [facility] Blood BLOOD SPECIMEN / Unknown Venipuncture / Unknown 06/01/2024 5:35 PM CDT 06/01/2024 5:38 PM CDT Yamile ISRAEL CHEMISTRY Final Result Performing Organization Address City/[facility]/ZIP Co de Phone Number [facility] [address] [place] [address] * (ABNORMAL) BASIC METABOLIC PANEL (06/01/2024 5:35 PM CDT) SODIUM 137 136 - 145 mmol/L 06/01/2024 6:07 PM [facility] POTASSIUM 4.1 3.5 - 5.1 mmol/L 06/01/2024 6:07 PM [facility] CHLORIDE 102 98 - 107 mmol/L 06/01/2024 6:07 PM [facility] CO2,TOTAL 25 22 - 29 mmol/L 06/01/2024 6:07 PM [facility] ANION GAP 10 5 - 18 06/01/2024 6:07 PM [facility] GLUCOSE 114(H) 70 - 99 mg/dL 06/01/2024 6:07 PM [facility] CALCIUM 9.5 8.8 - 10.4 mg/dL 06/01/2024 6:07 PM [facility] Comment: Reference ranges for this test were updated on 01/11/2024 to reflect our healthy population more accurately. Reference range changes are not retroactively applied to results, but previous results using the same methodology can be interpreted in the context of the new reference range. BUN 21(H) 6 - 20 mg/dL 06/01/2024 6:07 PM T [facility] CREATININE 0.69(L) 0.70 - 1.20 mg/dL 06/01/2024 6:07 PM T [facility] BUN/CREAT RATIO 30(H) 10 - 20 6:07 PM T [facility] eGFR >90 >90 mL/min/1. 73m2 06/01/2024 6:07 PM [facility] Comment:As of 2021, eG FR is [...] PM CDT Yamile ISRAEL CHEMISTRY Final Result [facility] [address] [place], [place] [id number] * SDNA-FIT EXTERNAL (COLOGUARD) (03/30/2023 11:15 AM ATTRACTION WORKER) NONINV COLON CA DNA+OCC BLD SCRN STL-IMP Negative Negative 04/11/2023 10:12 AM ATTRACTION WORKER [employer] (CLIA #:[id number]) Comment: NEGATIVE TEST RESULT. A negative Cologuard [...] colonoscopy. (Jazmine Montelongo, N Engl J Med 2014;370(14):1845-7430) The normal value (reference range) for this assay is negative. COLOGUARD RE-SCREENING RECOMMENDATION: Periodic colorectal cancer screening is an important part of preventive healthcare for asymptomatic individuals at average risk for colorectal cancer. Following a negative Cologuard result, the [employer] Cancer Society and U.S. Multi-Society Task Force screening guidelines recommend a Cologuard re-screening interval of 3 years. References: [employer] Guideline for Colorectal Cancer Screening: https://www.cancer.org/cancer/pdsse-suxubh-atippk/hxyjrlfzz-ublmbxmkh-gyhvyfk/ac s-rec ommendations.html.; Will DK, Sravani CLIFTON, Lupis NoK, Colorectal Cancer Screening: Recommendations for Physicians and Patients from the U.S. Multi-Society Task Force on Colorectal Cancer Screening , Am J Gastroenterology 2017; 112:8415-6164. TEST DESCRIPTION: Composite algorithmic analysis of stool [...] colonoscopy. (Jazmine Montelongo, N Engl J Med 2014;370(14):7588-9021.) Cologuard may produce a false negative or false positive result (no colorectal cancer or precancerous polyp present at colonoscopy follow up). A negative Cologuard test result does not guarantee the absence of CRC or advanced adenoma (pre-cancer). The current Cologuard screening interval is every 3 years. ([employer] Cancer Society and U.S. Multi-Society Task Force). Cologuard performance data in a 10,000 patient pivotal study using colonoscopy as the reference method can be accessed at the following location: www.Couplewise.Zeenoh/results. Additional description of the Cologuard test process, warnings and precautions can be found at www.Frequencyrd.com. Stool specimen (specimen) (Rectum) 03/30/2023 11:15 AM ATTRACTION WORKER 03/31/2023 1:26 PM ATTRACTION WORKER Danii Gomez DO URINE Final Result [employer] (CLIA #:[id number]) [place] [address], * (ABNORMAL) LIPID PANEL W REFLEX MEASURED LDL (03/18/2023 5:12 PM ATTRACTION WORKER) CHOLESTEROL,TOTAL 162 100 - 199 mg/dL 03/18/2023 5:55 PM [facility] Comment: Cholesterol, Total Reference Ranges Desirable <200 mg/dL Borderline 200-239 mg/dL High >=240 mg/dL TRIGLYCERIDES 128 <150 mg/dL 03/18/2023 5:55 PM [facility] HDL CHOLESTEROL 39(L) >40 mg/dL 5:55 PM [facility] NON-HDL CHOLESTEROL 123 <145 mg/dl 03/18/2023 5:55 PM [facility] CHOL/HDL RATIO 4.15 <4.50 03/18/2023 5:55 PM [facility] LDL CHOLESTEROL 97 <=130 mg/dL 03/18/2023 5:55 PM [facility] VLDL CHOLESTEROL 26 <=30 mg/dL 03/18/2023 5:55 PM [facility] PROVIDER ORDERED STATUS RANDOM 03/18/2023 5:55 PM [facility] Blood BLOOD SPECIMEN / Unknown Venipuncture / Unknown 03/18/2023 5:12 PM ATTRACTION WORKER 03/18/2023 5:13 PM ATTRACTION WORKER Danii Gomez DO CHEMISTRY Final Result [facility] [address] [place] [address] * LC HCV ANTIBODY RFX TO QUANT PCR (06/09/2022 8:44 AM CDT) Pathologist [facility] HCV Ab Non Reactive Non Reactive 06/11/2022 10:06 PM CDT [facility] Blood BLOOD SPECIMEN / Unknown Venipuncture / Unknown 06/09/2022 8:44 AM CDT 06/09/2022 8:48 AM CDT Narrative [facility] - 06/11/2022 10:06 PM CDT Performed at: [address] [place] [id number] Network Cabler: Jamey Hernandez MD, Phone: [phone] Jose ISRAEL LABORATORY Fin al Result [facility] [place] [address], * LC HIV-1/O/2, 4TH GENERATION (06/09/2022 8:44 AM CDT) Pathologist [facility] HIV Scr 4th Gen Non Reactive Non Reactive 06/12/2022 3:07 AM CDT [facility] Comment: HIV Negative HIV-1/HIV-2 antibodies and HIV-1 p24 antigen were NOT detected. There is no laboratory evidence of HIV infection. Blood BLOOD SPECIMEN / Unknown Venipuncture / Unknown 06/09/2022 8:44 AM CDT 06/09/2022 8:48 AM CDT [address]ative [facility] - 06/12/2022 3:07 AM CDT Performed at: 01 - [facility] [address] [place], [place] [id number] Network Cabler: Jamey Hernandez MD, Phone: [phone] us Jose ISRAEL LABORATORY Fin al Result [facility]) [facility] [place] [address], from Last 3 Months or Most Recently Relevant to Health Maintenance Insurance [facility] Advance Directives * [...] Comments Code Status Discussion: Other Care Teams Router Operator Pin Relationship Specialty Start Date End Date Ayleen, Alan William, MD [address] [place] [address] PCP - General Family Practice 09/13/23
[2024-07-24 11:50] VITALS: O2SAT 98
[2024-07-24] MEDS: MORPHINE 4 MG/ML INJ IVP (11:55)
[2024-07-24] MEDS: 0.9 % SODIUM CHLORIDE 1000 ml 1,000 ML 500 ML IV (11:55)
[2024-07-24 12:00] VITALS: PULSE 83; RESP 14; O2SAT 96
[2024-07-24 12:30] VITALS: PULSE 79; RESP 16; O2SAT 96
[2024-07-24 12:31] LABS: Basophils Absolute Auto 0.04 K/uL (0.00-0.30); Basophils Percent Auto 0.5 % (0.0-3.0); Eosinophils Absolute Auto 0.11 K/uL (0.00-0.50); Eosinophils Percent Auto 1.4 % (0.0-7.0); Hematocrit 42.6 % (37.0-53.0); Hemoglobin* 14.1 gm/dL (13.5-17.5); Immature Granulocytes Abs Auto 0.01 K/uL (0.00-0.30); Immature Granulocytes Pct Auto 0.1 %; Lymphocytes Absolute Auto 1.76 K/uL (0.90-2.90); Lymphocytes Percent Auto 22.7 % (20-44); Mean Corpuscular HGB Conc 33 gm/dL (32-36); Mean Corpuscular Hemoglobin 30 pg (26-34); Mean Corpuscular Volume 91 fL (80-100); Monocytes Percent Auto 8.9 % (0.0-11.0); Neutrophils Absolute Auto 5.15 K/uL (1.7-7.0); Neutrophils Percent Auto 66.4 % (42.0-72.0); Platelet Count* 241 K/uL (140-440); RDW Coefficient of Variation % 12.7 % (11.5-15.5); Red Blood Count 4.69 m/uL (4.30-5.90); White Blood Count* 7.76 K/uL (4.50-11.00)
[2024-07-24 12:35] LABS: Slide Review Reflex No
[2024-07-24 12:44] LABS: Albumin* 4.4 g/dL (3.3-5.0); Chloride* 102 mmol/L (96-114); Sodium* 140 mmol/L (135-149)
[2024-07-24 12:45] LABS: Potassium* 4.1 mmol/L (3.6-5.1)
[2024-07-24 12:47] LABS: Alanine Aminotransferase* 85 U/L (4-50); Aspartate Amino Transferase* 64 U/L (12-35); Blood Urea Nitrogen* 21 mg/dL (7-30); Creatinine* 0.8 mg/dL (0.5-1.5); Est. Creatinine Clearance* 117.91; Estimated Glomerular Filt Rate 105 ml/min
[2024-07-24 12:48] LABS: Alkaline Phosphatase* 81 U/L (40-150); Anion Gap 7 mEq/L (7-15); Bilirubin Total* 0.6 mg/dL (0.1-1.5); Calcium* 9.5 mg/dL (8.4-10.6); Carbon Dioxide* 31 mmol/L (20-32); Creatine Kinase* 85 U/L (54-186); Glucose* 154 mg/dL (60-115); Magnesium* 2.2 mg/dL (1.5-2.6); Total Protein* 7.7 g/dL (6.0-8.3)
[2024-07-24 12:50] LABS: C Reactive Protein* 0.8 mg/dL (0.5-1.0)
[2024-07-24 13:00] VITALS: PULSE 70; O2SAT 97
[2024-07-24 13:01] LABS: PCR FLU A Negative PCR FLU A (Negative); PCR FLU B Negative PCR FLU B (Negative); PCR RSV Negative PCR RSV (Negative); SARS PCR* Negative SARS-CoV-2 (Negative)
[2024-07-24 13:30] VITALS: PULSE 74; RESP 12; O2SAT 97
[2024-07-24 13:52] LABS: Erythrocyte SedimentationRate* 7 mm/hr (2-15)
== END 2024-07-24 13:52 | disposition home or self-care (01) ==
PROVIDERS: Emergency Provider Family Medicine
DX: M54.50 Low back pain, unspecified (principal)
CPT/HCPCS: 36415; 80053; 82550; 83605; 83735; 84443; 85025; 85651; 86140; 87631; 94761; 96361; 96374; 99284; J2270; J7030